=== PATIENT | female | born 1965 | race Caucasian/White ===

== ENCOUNTER 2019-12-03 11:55 | Outpatient (CLI) | payer OTHER ==
[2019-12-03] MEDS ORDERED: IOVERSOL 320 100 ML VIAL IVP ONE ×2 (11:56→12:22)
--- NOTE | 2019-12-03 17:07 | CT Report ---
Reason: ANEURYSM, SUBARACHNOID Procedure Date: 12/03/2019 Accession Number: [id number] / [id number] Procedure: CT - ANGIO HEAD W/WO CPT Code: Final Report FULL RESULT: PROCEDURE: ANGIO HEAD W/WO INDICATIONS: ANEURYSM, SUBARACHNOID CONTRAST: IV CONTRAST: Optiray 320 ml: 80 PO CONTRAST: *NO PO CONTRAST TECHNIQUE: Precontrast 4.5 mm thick angled axial sections acquired from the foramen magnum to the vertex. After the administration of intravenous contrast, 1 mm thick sections acquired through the [place] of [place]. Postcontrast 4.5 mm thick sections then re-acquired from the foramen magnum to the vertex. 3-dimensional xaoetez-bptklsrve-beyecntolw (MIP) and/or volume rendering reformats were acquired of the central intracranial vasculature. For radiation dose reduction, the following was used: automated exposure control, adjustment of mA and/or kV according to patient size. COMPARISON: None FINDINGS: Image quality: Significant artifact is noted at the brain stem appearing to be secondary to aneurysm coil. Anterior circulation: Intracranial internal carotid arteries are normal in size and flow. The flow within the paired anterior cerebral arteries is normal and symmetric. The flow within the middle cerebral arteries is normal and symmetric. The anterior communicating artery is seen. No aneurysms are seen. Posterior circulation: Visualized portions of the vertebral arteries demonstrate normal caliber, and join to form a normal appearing basilar artery. Flow within the posterior cerebral arteries is normal and symmetric. No aneurysms are seen. CSF spaces: Ventricles are dilated.. Basal cisterns are patent. No extra-axial fluid collections. Brain: No midline shift. No intracranial bleeds or masses. Campuzano-white matter interface appears intact. Skull and face: Calvarium and facial bones appear intact, without suspicious lesions. Sinuses: Visualized sinuses and mastoids are clear. IMPRESSION: 1. Significant artifact from presumed aneurysm coil at the level of the brainstem, limiting evaluation of immediate surrounding region. 2. Otherwise, no areas of aneurysmal dilation within the anterior posterior circulation. 3. Ventricles are prominent. No prior exams are available for comparison. Recommend correlation to potential hydrocephalus or potentially normal pressure hydrocephalus. If prior exams are available from outside institutions and become available for review, an addendum will be issued for evaluation of stability or interval change. Reviewed by: An Marsh MD on 12/03/2019 5:05 PM PDT Approved by: An Marsh MD on 12/03/2019 5:05 PM PDT Station ID: [id number]
== END 2019-12-03 11:56 | disposition home or self-care (01) ==
LOC: DI 11:55
PROVIDERS: ATTEND Nurse Practitioner
DX: G93.89 Other specified disorders of brain (principal)
CPT/HCPCS: 70496; Q9967

== ENCOUNTER 2020-02-17 10:40 | Outpatient (CLI) | payer OTHER ==
--- NOTE | 2020-02-17 18:39 | CONSULTATION NOTE ---
Palliative Care Consultation - Referral Referring Provider: ASTRID Fleming Time of Visit: [id number] Referral setting: Home Referral Reason: Subarachnoid hemorrhage/Debility/Advanced Care Planning - Information Sources Records reviewed: Previous records reviewed History/Review of Systems obtained from: Patient, Family (father/Mukund GRAHAM present as well as mother Julieta) - History of Present Illness Brief History of Present Illness: This is a 54-year-old female who was seen and evaluated today within her home for initial palliative care consultation with her father/Devonte MAYS present as well as her mother, Gerry. 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 She sustained an unwitnessed fall and was found at the bottom of the stairs on September 20, 2019. She was treated at [facility] in [place] and was there for approximately 1 month. She underwent a right vertebral artery sacrificing embolization with placement of EVD that was weaned and removed 10/10/2019. The patient after being stabilized transition to a [facility] and then transition to rehab in [place]. She has been first picked up by her family to move into her parents home on [facility] on 11/04/2019. While the patient was hospitalized she was evaluated by neurosurgery and neuro IR. Of note, MRI of the brain performed on 10/16/2019 demonstrated a right lateral medullary subacute infarct. It was recommended that she have follow-up brain imaging as well as with neuro IR. She has not followed up with neurology in this area at the present time as her father reports there have been some barriers due to the patient's [employer] insurance and the patient's needs to establish care as she has relocated. This is pending to be established per the father's report. The patient herself has worked with home health physical therapy and Occupational Therapy completing her last therapy session last week. She has made great strides in having improvement. She continues to overall be wheelchair-bound but is now able to ambulate short distances especially on [place]ia faces that she is familiar with. She is also now able to independently toilet which was a task previously. After her ruptured aneurysm and rehabilitation it has been difficult for the patient and her parents to find a rhythm and groove. They are now in a good place and residing together. The patient is looking forward to continuing to make strides in the rehabilitation floor. She has been getting more out of the home. She does have some on ease with concerns regarding falling on uneven surfaces that she is not familiar with. She has not had a fall and over approximately 1 month. The patient is seen today in her wheelchair, well-groomed appears younger than stated. No acute distress. Medical/Surgical History - Past Medical History Respiratory: reports: Asthma Neuro: CVA, Other (subarachnoid hemorrhage from right vertebral artery rupture Spring 2019; short term memory impairment) Endocrine/Autoimmune: reports: None Psych: reports: Anxiety Derm: reports: None - Past Surgical History Neuro: reports: Other (right vertebral artery embolization with placement of EVD that was removed 10/10/2019) - Substance History Use: Uses substance without health or social issues: NONE Social History - Living Situation Living arrangement: At home Living Situation: With family (Residing with parents, Mukund and Gerry) Support System: The patient is not . She has never had any children. She has 4 siblings. Her 2 brothers are local and have been providing support for both her and her parents. The patient graduated high school and immediately left to move to [place], [place]. She grew up on [address]. She was residing in [place] and until she sustained a ruptured cerebral aneurysm and then relocated back to [facility] in November 2019. Prior to this incident that resulted in her subsequent hospitalization she was planning on moving back to [facility]. Family History - Family History Family History: Mother: Alive and Well, Father: Alive and Well Family History Comment/Other: Father, alive history of diabetes. Mother, alive history of hypertension. Brothers Vasile and Cain and Sister Francia alive and well. Medications/Allergies - Medications Home Medications: Ambulatory Orders Medication Instructions Recorded Confirmed Acetaminophen [Tylenol Extra 1,000 mg PO Q8H PRN 02/17/20 02/17/20 Strength] Amitriptyline [Elavil] 12.5 mg PO QPM 02/17/20 02/17/20 Aspirin [Aspirin EC] 81 mg PO DAILY 02/17/20 02/17/20 Atorvastatin Calcium 20 mg PO QPM 02/17/20 02/17/20 Propranolol [Inderal] 10 mg PO TID 02/17/20 02/17/20 Psyllium Husk [Natural Fiber PO DAILY MDD constipation 02/17/20 Supplement] Senna [Senokot] 8.6 mg PO QPM PRN 02/17/20 02/17/20 Sertraline HCl 100 mg PO DAILY 02/17/20 02/17/20 Albuterol Sulfate [Albuterol 2 puffs IN Q4H PRN 02/18/20 02/18/20 Sulfate Hfa] - Allergies Allergies/Adverse Reactions: Allergies Allergy/AdvReac Type Severity Reaction Status Date / Time Sulfa (Sulfonamide Allergy Unknown Verified 02/17/20 21:52 Antibiotics) Review of Systems - Constitutional Constitutional: reports: Fatigue. denies: Weight loss - Eyes Eyes: reports: Corrective lenses - Ears, Nose & Throat Ears, Nose & Throat: reports: Tinnitus, Other (sinus problems) - Cardiovascular Cardiovascular: denies: Palpitations, Chest pain - Respiratory Respiratory: denies: Wheezing (history of asthma) - Gastrointestinal Gastrointestinal: reports: Constipation (managed with current use of fiber), Good appetite. denies: Abdominal pain, Diarrhea, Vomiting - Genitourinary Genitourinary: denies: Dysuria - Musculoskeletal Musculoskeletal: reports: Muscle pain, Stiffness, Assistive devices - Integumentary Integumentary: denies: Rash - Neurological Neurological: reports: General weakness, Dizziness (rare with position changes), Memory problems (short term memory), Other (intermittent tingling noted from proximal LLE down that improves with position changes). denies: Seizures - Psychiatric Psychiatric: reports: Depression - Endocrine Endocrine: denies: Diabetes type 2 - Hematologic/Lymphatic Hematologic/Lymphatic: denies: Recurrent infections - All Other Systems All Other Systems: reports: Reviewed and negative Physical Exam - Vital Signs Temperature: 36.6 C Pulse Rate: 78 O2 Saturation: 97 (on RA at rest) Blood Pressure: 103/65 (left wrist cuff) - Physical Exam General Appearance: positive: No acute distress, Alert, Other (well groomed, appears younger than stated age) Eyes Bilateral: positive: Other (+corrective lenses) ENT: positive: No signs of dehydration Neck: positive: Trachea midline Cardiovascular: positive: Regular rate & rhythm, No murmur Respiratory: positive: No respiratory distress, Breath sounds nml. negative: Rales Abdomen: positive: Non-tender, Soft, Nml bowel sounds Skin: positive: No symptoms Extremities: positive: No pedal edema, Other (moves all extremities; decreased strength to LLE vs RLE) Neurologic/Psychiatric: positive: Oriented x3 (intact remote memory with short term memory impairments noted), Mood/affect nml, Other (Engaged) Palliative Care - POLST Patient has POLST: No Feelings of wellbeing/Perceived Quality of Life: Fair Constipation: Yes, Managed Performance Status: Patient is able to ambulate short distances with her walker otherwise uses a wheelchair and is able to self propel. She is able to toilet independently. Able to self feed. PPS 50% - Palliative Care Discussion: The patient has had a functional decline after she sustained a ruptured aneurysm resulting in a subarachnoid hemorrhage. She has made great strides in her functional status while residing at her parents home on [facility] after relocated from [place]. She is completed her physical therapy and occupational therapy with home health in wishes to continue outpatient services for strengthening and with the goal of walking independently with her walker without fear of falling. The patient presently feels confident walking outside on her parents deck and within the home. She has a fear of falling when ambulating on uneven surfaces and would benefit from continued therapy. The patient and her parents initially had some difficulty in finding a rhythm as the patient herself reports that she has been set on her routines and had lived independently and moving back into her parents home and settling was quite an abrupt change for her. Both the patient and her father report that they have made headway and are in a good rhythm at the present time. The patient spirits have also improved as she has become more independent. However, the patient finds the isolation difficult as the environment on [facility] is at a slower pace than [place]. It is also compounded by the coronavirus limiting social interaction and group meetings. The patient's father/D POA initially had concerns regarding the patient going outside of the home and being at risk for the coronavirus. His fear has lessened and reassurance provided regarding appropriate preventative measures to take for all parties within the home to reduce risk. The patient finds [employer] in the Internet and social media. Her present goals are to be able to have coffee with a neighbor up the street to his of the same age, Stephanie. She also wishes to be able to attend christian as this is something that has been important to her in the past and she is of [employer]. The patient also has an interest in photography as well as art and this [facility] encouraged the patient to explore these interest further. Impression and Recommendations - Palliative Care Impression: This is a amx 54-year-old female who unfortunately sustained a ruptured aneurysm to the right vertebral artery resulting in a subsequent subarachnoid hemorrhage with a decline in functional status and short-term memory impairment. The patient has made great strides and continues to improve but is not at her baseline status. She would benefit from continued physical therapy and Occupational Therapy on an outpatient basis with achievable goals of going to christian, ambulating with her walker, and having coffee with a neighbor. Palliative care to continue to provide support for exploration of goals of care, symptom management, and advanced care planning. Recommendations/Counseling Done: 1. Subarachnoid hemorrhage s/p rupture vertebral artery with decline in functional status and short term memory impairment. Patient is making strides in functional ability. She would benefit from continued physical therapy and Occupational Therapy outpatient. Order for [facility] PT and OT faxed and father aware to f/u regarding request. Supportive care. Fall precautions. Strongly encouraged to patient and father/D Mukund REESE the need for neurology follow-up with requested imaging given the patient's recent history with understanding verbalized. 2. CVA. Chronic. Supportive care. Continue secondary preventative measures for stroke in optimizing BP control, ASA and statin therapy. Reviewed with patient's father the need for consistent administration of ASA 81mg daily and it is not for pain management as the patient is s/p CVA and s/p aneurysm coiling with understanding verbalized. 3. Depression with history of paroxysmal sympathetic hyperactivity. Compounded by patient's social isolation due to coronavirus. Strongly encouraged the patient to explore previous interest in photography and art. Recommended free online programs for the patient to engage in. Strongly encouraged to connect with her neighbor to build rapport. To request palliative care social services designee an d palliative care kitchen utility associate provide additional psychosocial support and reduce isolation.Continue amitriptyline and sertraline as ordered. Supportive listening provided. Continue to monitor and adjust medication regimen as needed. 4. Advanced care planning. Patient has achievable goals of ambulating independently with her walker and reducing her social isolation. She recognizes her cognitive and functional impairments and has made great strides in adapting. She has a supportive network from HER-2 brothers as well as her parents. Supportive listening provided. Continue to explore goals of care and advance care planning. Time Spent: Total time spent 70 minutes with greater than 50% of this spent in counseling and coordination of care with patient and parents, Naveen; palliative philosophy; examination of patient; review symptom management and anticipatory guidance. Disclaimer: The chart note was formulated using voice recognition technology and unfortunately sound alike errors may occur.
== END 2020-02-17 10:41 | disposition home or self-care (01) ==
LOC: PC 10:40
PROVIDERS: ATTEND Nurse Practitioner Family
DX: Z51.5 Encounter for palliative care (principal); I69.011 Memory deficit following nontraumatic subarachnoid hemorrhage; I69.0 Sequelae of nontraumatic subarachnoid hemorrhage; I60.51 Nontraumatic subarachnoid hemorrhage from right vertebral artery; I63.9 Cerebral infarction, unspecified; F32.9 Major depressive disorder, single episode, unspecified; K59.00 Constipation, unspecified; Z79.899 Other long term (current) drug therapy; Z79.82 Long term (current) use of aspirin; Z60.8 Other problems related to social environment
CPT/HCPCS: 99344

== ENCOUNTER 2020-03-17 10:30 | Outpatient (CLI) | payer OTHER ==
--- NOTE | 2020-03-17 15:12 | CONSULTATION NOTE ---
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 Please see a detailed history dictated on 02/17/2020 for full details. The patient has recently seen neurologist, Dr. Zoraida Michel at [facility], With reports that she has had resolution of her hydrocephalus and that the coil is stable. She is to have a repeat MRI but there was no concerning symptoms on evaluation noted by the neurologist as reported by the patient's father. The patient is now working with outpatient physical therapy and Occupational Therapy. She is no longer using her transport wheelchair as frequently and and is using her walker more regularly. He was found that the transport wheelchair was causing pain to her left hip secondary to the bar. After removing their transporter wheelchair the patient has had resolution of those symptoms regarding her left hip pain. She continues to work on ambulation and exercises as is recommended by physical therapy. However, the patient reports that there are some exercises that she requires her parents assistance and she feels underlying guilt for taking them away from their activities. The patient remains fearful regarding walking on on even surfaces for fear of falling. She is afraid that if she were to fall that she would have a backward recourse in her capabilities. She has been doing quite well walking on asphalt to go to her rehabilitation appointments. She continues to have some difficulty with her short-term memory. The patient has adapted by taking pictures to review to help with her memory. This is been significantly helpful for her recall especially when she has consumed a meal and then believes that she has not eaten. The patient also is insightful that the use of the stool as well as her parents keeping a log of when she has taken her medications, the times as well as her meals has helped diffuse and anger that she may have had towards her parents. Yesterday, the patient reports that she noticed some left shoulder discomfort. She denies a pain with movement but there is localized tenderness to touch. No swelling. No warmth. No numbness or tingling down the left upper extremity. Patient does not recall an injury. The patient is seen in the living room on a office chair, well-groomed and appears younger than stated age. No acute distress. 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 Social History - Living Situation Living arrangement: At home Living Situation: With family Support System: The patient is not and does not have any children. She is presently residing with her parents, Mukund and Gerry bowden in their 80s. She has 4 siblings. She has 2 brothers who are local and have been assisted in providing support for both her and her parents. Prior to her cerebral aneurysm the patient was residing in [place], [place]. She did grow up on [facility]. She is used to the [employer] as well as the [employer] industry. She enjoys interacting with other people. She has found it isolating and difficult due to the coronavirus limiting her ability to socialize in the [facility] [place] [facility] community and particularly having her parents be her main source of social interactions. Medications/Allergies - Medications Home Medications: Ambulatory Orders Medication Instructions Recorded Confirmed Acetaminophen [Tylenol Extra 1,000 mg PO Q8H PRN 02/17/20 02/17/20 Strength] Amitriptyline [Elavil] 12.5 mg PO QPM 02/17/20 02/17/20 Aspirin [Aspirin EC] 81 mg PO DAILY 02/17/20 02/17/20 Atorvastatin Calcium 20 mg PO QPM 02/17/20 02/17/20 Propranolol [Inderal] 10 mg PO TID 02/17/20 02/17/20 Psyllium Husk [Natural Fiber PO DAILY MDD constipation 02/17/20 Supplement] Senna [Senokot] 8.6 mg PO QPM PRN 02/17/20 02/17/20 Sertraline HCl 100 mg PO DAILY 02/17/20 02/17/20 Albuterol Sulfate [Albuterol 2 puffs IN Q4H PRN 02/18/20 02/18/20 Sulfate Hfa] - Allergies Allergies/Adverse Reactions: Allergies Allergy/AdvReac Type Severity Reaction Status Date / Time Sulfa (Sulfonamide Allergy Unknown Verified 02/17/20 21:52 Antibiotics) Review of Systems - Constitutional Constitutional: reports: Weight stable. denies: Fever, Poor appetite - Eyes Eyes: reports: Corrective lenses (has an upcoming optometry appointment scheduled for new glasses). denies: Vision loss - Ears, Nose & Throat Ears, Nose & Throat: denies: Hearing loss - Cardiovascular Cardiovascular: denies: Chest pain - Respiratory Respiratory: denies: Cough, SOB at rest - Gastrointestinal Gastrointestinal: reports: Constipation (Notices if she does not consume enough water during the day she will have firmer bowel movements), Good appetite. denies: Abdominal pain, Vomiting - Genitourinary Genitourinary: denies: Dysuria - Neurological Neurological: reports: General weakness, Memory problems (short term memy with remote memory intact). denies: Headache, Seizures - Psychiatric Psychiatric: reports: Depression (see HPI) - Endocrine Endocrine: denies: Diabetes type 2 - Hematologic/Lymphatic Hematologic/Lymphatic: denies: Recurrent infections - All Other Systems All Other Systems: reports: Reviewed and negative Physical Exam - Vital Signs Temperature: 36.6 C Pulse Rate: 80 O2 Saturation: 96 (on RA at rest) Blood Pressure: 136/64 - Physical Exam General Appearance: positive: No acute distress, Alert, Other (well groomed, appears younger than stated age) Eyes Bilateral: positive: Other (+corrective lenses) ENT: positive: No signs of dehydration Neck: positive: Trachea midline Cardiovascular: positive: Regular rate & rhythm, No murmur Respiratory: positive: No respiratory distress, Breath sounds nml. negative: Wheezes Abdomen: positive: Non-tender, Soft, Nml bowel sounds Skin: positive: No symptoms Extremities: positive: No pedal edema, Other (moves all extremities; TTP left trapezius muscle along shoulder without erythema or induration; full ROM for right and left shoulders.Left shoulder active ROM without discomfort and full strength abduction, external rotation and internal rotation.). negative: Joint swelling Neurologic/Psychiatric: positive: Oriented x3 (mild short term memory impairments noted), Mood/affect nml Palliative Care - POLST Patient has POLST: No Pain: Comment (see HPI re: left shoulder pain) Nausea: None Anorexia: None Dyspnea: None Depression: Mild (1-3) Anxiety: Mild (1-3) Constipation: Yes, Managed Performance Status: The patient has been increasing her ability to ambulate distances with her walker and is relying less on her transporter wheelchair. She is able to toilet independently. Able to self feed. No falls. - Palliative Care Discussion: The patient has had a functional decline after she sustained a ruptured aneurysm resulting in a subarachnoid hemorrhage. She continues to make great strides in her functional status Erik residing in her parents home on [facility] after relocating from [place]. She is presently working with outpatient physical therapy and Occupational Therapy. Despite her significant progress the patient continues to lament upon what she was capable of doing prior to this health event. The patient's father/D POA and family all recognize the strides that she has made. When pointed out where the patient was to where she is and accomplishments that she has made, she is able to recognize her overall accomplishments. She continues to find the isolation difficult due to the coronavirus limiting social interaction as well as living on [facility] which is in a much slower place than [place]. She has been getting out of the house more as she has had to attend her rehabilitation services as an outpatient. Next weekend she is to be with her brothers for a family outing at [facility] past which she is looking forward to. She does miss the support that she had with in her [employer] in [place]. She does desire to have that support here on [facility]. She recently attended a virtual sermon from her prior [employer]. Impression and Recommendations - Palliative Care Impression: This is a max 54-year-old female who unfortunately sustained a ruptured aneurysm to right vertebral artery resulting in a subarachnoid hemorrhage with a decline in functional status and short-term memory impairment. The patient continues to make great strides in her overall functional status but she continues to not fully recognize the accomplishments that she has achieved. She is presently working with outpatient physical and occupational therapy to improve her functional status has well as her short-term memory impairments as a result of her cerebral aneurysm. Patient is going to look towards focusing on the present and management of her expectations of herself. Palliative care to continue to provide support for exploration of goals of care, symptom management and advance care planning. Recommendations/Counseling Done: 1. Subarachnoid hemorrhage status post rupture vertebral artery with decline in functional status and short-term memory impairment. Status post neurology appointment at [facility] with Dr. Zoraida Michel with patient and father/DPOA reporting stablization. Will request copy of visit from [facility] for review. The patient continues to make strides in her functional ability. Continue to work with outpatient physical therapy and Occupational Therapy. In regards to her underlying debility as a result of her cerebral hemorrhage recommend that she obtain exercises directly from physical therapy that she may perform independently without the assistance of her parents. Also recommend that for exercises that she needs the assistance of her parents within the home to set a daily time on days that she does not have physical therapy to limit her perception of being a burden to her parents. Follow-up with neurology as scheduled. 2.Depression with history of paroxysmal sympathetic hyperactivity. This is compounded by the patient's social isolation due to coronavirus.Continue amitriptyline and sertraline as ordered. Continue outpatient psychotherapy. Continue to have additional support from palliative care director social for psychosocial support and to reduce isolation. Requested that the patient look into [employer] churches in her area to see if they are holding limited services with the goal for her to attend as her evelia and the interactions of others of her evelia are of importance to her. Also requested that she reach out to the neighbor on her street to set up a coffee date in the future. Supportive listening provided. Continue to monitor and adjust medication regimen as needed. 3. Left trapezius muscle tenderness. Continues with full range of motion to left shoulder. Possibly exacerbated musculature due to strengthening exercises. Recommend that the patient's apply a cool compress to the affected site for 10 minutes 3 times per day for the next 3 days. If no improvement or worsening symptoms to follow-up with her PCP for further evaluation with understanding verbalized. 4. CVA. Chronic. Supportive care. Continue secondary preventative measures for stroke and optimizing blood pressure control, aspirin and statin therapy. Follow-up with neurology as scheduled. CC: Palliative Care Social Work Time Spent: F/u May 2020 and prn. Total time spent 50 minutes with greater than 50% of this spent in counseling and coordination of care with patient and father/DPOA Mukund; examination of patient; supportive listening; review of symptom management and anticipatory guidance. Disclaimer: The chart note was formulated using voice recognition technology and unfortunately sound alike errors may occur.
== END 2020-03-17 10:31 | disposition home or self-care (01) ==
LOC: PC 10:30
PROVIDERS: ATTEND Nurse Practitioner Family
DX: Z51.5 Encounter for palliative care (principal); I60.9 Nontraumatic subarachnoid hemorrhage, unspecified; I69.011 Memory deficit following nontraumatic subarachnoid hemorrhage; I69.098 Other sequelae following nontraumatic subarachnoid hemorrhage; I10 Essential (primary) hypertension; F32.9 Major depressive disorder, single episode, unspecified; M25.512 Pain in left shoulder; E11.9 Type 2 diabetes mellitus without complications
CPT/HCPCS: 99349

== ENCOUNTER 2020-04-16 10:42 | Outpatient (CLI) | payer OTHER ==
--- NOTE | 2020-05-06 08:34 | Mammography Report ---
BILATERAL DIGITAL SCREENING MAMMOGRAM: 04/16/2020 CLINICAL: Routine screening. No prior exams were available for comparison. The tissue of both breasts is heterogeneously dense. T his may lower the sensitivity of mammography. No significant masses, calcifications, or other findings are seen in either breast. IMPRESSION: NEGATIVE There is no mammographic evidence of malignancy. A 1 year screening mammogram is recommended. This exam was interpreted at Station ID: [id number]. NOTE: For mammograms, a report in lay terms will be sent to the patient. Approximately 15% of breast malignancies will not be visualized mammographically. In the management of a palpable breast mass, a negative mammogram must not discourage biopsy of a clinically suspicious lesion. Electronically Signed By: Teodoro salmon/johnny:05/06/2020 08:13:06 ACR BI-RADS Category 1: Negative 3341F PARENCHYMAL PATTERN: (D) - The breast(s) demonstrate(s) heterogeneously dense fibroglandular vance mayer. BI-RADS CATEGORY: (1) - 1 RECOMMENDATION: (ANNUAL) - Recommend routine annual screening mammography. [id number] 1 year screening LATERALITY: (B)
== END 2020-04-16 10:43 | disposition home or self-care (01) ==
LOC: DI.N 10:42
DX: Z12.31 Encounter for screening mammogram for malignant neoplasm of breast (principal)
CPT/HCPCS: 77067

== ENCOUNTER 2020-05-11 15:51 | Outpatient (CLI) | payer OTHER ==
--- NOTE | 2020-05-11 17:44 | CONSULTATION NOTE ---
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 Please see detailed history dictated on 02/17/2020 for full details. The patient was scheduled for an MRI at [facility] that was ordered by her neurologist, Dr. MATT at [facility]. However, this is not able to be performed at the present time given the patient's history of having a coil status post her subarachnoid hemorrhage. The patient's father has a follow-up request to the neurologist and is awaiting further recommendations. The patient continues to work on ambulation and is attending physical therapy service twice a week with [facility] rehabilitation outpatient services. She is also begun working with the speech-language pathologist and has had 1 session with a nonthere are pending later this week. She is found working with the [facility] helpful. She notes that if she writes things down she is more apt to remember them. She is reporting "numbness" to her left calf. This is been present since she sustained her subarachnoid hemorrhage and residual sequelae. The patient states that she has reported this to physical therapy and they had recommended a using ice or heat application to the site as well as performing specific exercises. She continues to report its presence and is presently concerned that she may have symptoms of diabetes. The patient has been slowly gaining weight due to her inactivity and short-term memory impairment prompting her to forget that she has consumed a meal resulting in weight gain. The patient has adapted by taking pictures of her meal before consuming it as a time stance and reference for her to refer back to. However, in the last few days her family has scared her in regards to development of diabetes if she continues on this path and given the strong family history of diabetes with her maternal grandmother as well as in her father. The patient reports that she continues to have outburst here and there specifically revolving around her inability to do certain things. While in thing in particular that is a trigger for her is being declined food without further explanation. Patient reports that she would respond better to her parents if there was further explanation as opposed to a blanket statement. The patient continues on amitriptyline and sertraline for her mood. She continues to work with psychologist, Dr. Morris with phone describes to relieve tension. The patient's father reports that the outbursts have lessened and does not believe she needs an adjustment in her medications at the present time. The patient herself still finds that she has restricted movement with her activities due to the coronavirus and the need to mitigate her risk as well as her parents. The patient recognizes this but it is still difficult to adapt to her new surroundings. She is 1 that relies heavily on her evelia and it has also been difficult she has not been able to attend nondenominational and attend weekly virtual sessions. The patient is seen in the living room in an office chair, well-groomed and appears younger than stated age. No acute distress. 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 Social History - Living Situation Living arrangement: At home Living Situation: With family (parents, Gerry and Mukund) Support System: The patient is not and does not have any children. She presently resides with her parents, Mukund and Gerry who are in their 80s. She has 4 siblings. She has 2 brothers who are local and have been assisting in providing support for both her and her parents. Prior to her cerebral aneurysm the patient was residing in [place] [facility]. She grew up on [address]. He has not had coffee with the neighbor who is of similar age down the street from her in the neighborhood since last [facility] visit. She does have a friend from out of town who wishes to make a visit at a local coffee house and with some mediation today the patient's father is open to this meeting. Medications/Allergies - Medications Home Medications: Ambulatory Orders Medication Instructions Recorded Confirmed Acetaminophen [Tylenol Extra 1,000 mg PO Q8H PRN 02/17/20 02/17/20 Strength] Amitriptyline [Elavil] 12.5 mg PO QPM 02/17/20 02/17/20 Aspirin [Aspirin EC] 81 mg PO DAILY 02/17/20 02/17/20 Atorvastatin Calcium 20 mg PO QPM 02/17/20 02/17/20 Propranolol [Inderal] 10 mg PO TID 02/17/20 02/17/20 Psyllium Husk [Natural Fiber PO DAILY MDD constipation 02/17/20 Supplement] Senna [Senokot] 8.6 mg PO QPM PRN 02/17/20 02/17/20 Sertraline HCl 100 mg PO DAILY 02/17/20 02/17/20 Albuterol Sulfate [Albuterol 2 puffs IN Q4H PRN 02/18/20 02/18/20 Sulfate Hfa] - Allergies Allergies/Adverse Reactions: Allergies Allergy/AdvReac Type Severity Reaction Status Date / Time Sulfa (Sulfonamide Allergy Unknown Verified 02/17/20 21:52 Antibiotics) Review of Systems - Constitutional Constitutional: reports: Weight gain (weight presently 150lbs). denies: Fever - Eyes Eyes: reports: Corrective lenses. denies: Vision loss - Ears, Nose & Throat Ears, Nose & Throat: denies: Hearing loss - Cardiovascular Cardiovascular: denies: Chest pain - Respiratory Respiratory: denies: Cough - Gastrointestinal Gastrointestinal: reports: Good appetite (Does not recall when she has eaten and will take pictures of her meals for reference). denies: Abdominal pain, Constipation, Vomiting - Genitourinary Genitourinary: denies: Incontinence - Musculoskeletal Musculoskeletal: reports: Muscle pain (left calf), Assistive devices. denies: Joint swelling - Integumentary Integumentary: denies: Pruritis - Neurological Neurological: reports: Memory problems (short term memory deficit with remote memory intact). denies: Seizures - Psychiatric Psychiatric: reports: Depression - Endocrine Endocrine: denies: Diabetes type 2 - Hematologic/Lymphatic Hematologic/Lymph: Other (Denies recurrent infections) - All Other Systems All Other Systems: reports: Reviewed and negative Physical Exam - Vital Signs Temperature: 36.7 C Pulse Rate: 72 O2 Saturation: 98 (on RA at rest) Blood Pressure: 138/85 (left wrist cuff) - Physical Exam General Appearance: positive: No acute distress, Alert, Other (well groomed, appears younger than stated age) Eyes Bilateral: positive: Other (+corrective lenses) ENT: positive: No signs of dehydration Neck: positive: Trachea midline Cardiovascular: positive: Regular rate & rhythm, No murmur Respiratory: positive: No respiratory distress, Breath sounds nml Abdomen: positive: Non-tender, Soft, Nml bowel sounds Skin: positive: Dryness Extremities: positive: No pedal edema, Other (Tension noted to left calf vs right calf with palpation with no warmth or erythema visible) Neurologic/Psychiatric: positive: Oriented x3, Mood/affect nml, Weakness, Other (sensation to BLE intact with pin-prick testing) Palliative Care - POLST Patient has POLST: No Pain: Comment (see HPI for left calf comments) Nausea: None Anorexia: None Dyspnea: None Depression: Mild (1-3) Anxiety: Mild (1-3) Constipation: Yes, Managed - Palliative Care Discussion: The patient sustained a functional decline after she had a ruptured aneurysm resulting in a subarachnoid hemorrhage. She continues to make straight strides in her functional status while residing in her parents home on [address]. She is presently working with outpatient physical therapy and [facility] services. She is looking at ways of adapting to her present limitations to increase her ability to function independently. She becomes frustrated quite easily if the right approach is not taken in explanation by her parents for the thought process. The patient feels that she often has to ask for permission from her parents and this reminds her of returning back to her teenage years. She has found the isolation difficult due to the coronavirus limiting her social interactions as well as living on [address]. She has been getting out of the house to attend her rehabilitation services as an outpatient. She also has gone out on trips with her father on [facility]. However, the patient's father is conservative in his approach to outings for fear of the patient, himself, or his eloina the coronavirus. He is trying to be protective of the entire family. He is open as he understands the isolation that the patient is experiencing, to have them attended adding to would be coffee and eventually allow for the patient to meet with a visiting friend outside for coffee. The patient at times will perseverate on particular thoughts and feelings. Today, the patient is perseverating that she potentially may have diabetes mellitus due to the tight feeling to her left calf and explanation from her family regarding risk of diabetes with weight gain and her dietary choices. The patient relays that she does not wish to take herself "an early grave." Impression and Recommendations - Palliative Care Impression: This is a max 54-year-old female who unfortunately sustained a ruptured aneurysm to the right vertebral artery resulting in a subarachnoid hemorrhage with a decline in functional status and short-term memory impairment. She continues to make great strides in her overall function with adaptation techniques and is presently working with outpatient rehabilitation with PT and [facility]. The patient continues to have intermittent outbursts due to her history of subarachnoid hemorrhage and underlying depression but this is presently overall well controlled and medication adjustment was declined by the patient and her father/DPOA. Continue to work on mediation and communication between the patient and her parents to optimize the circumstances for all. Palliative care to continue to read support with explanations of goals of care, symptom management and advance care planning. Recommendations/Counseling Done: 1. Subarachnoid hemorrhage status post rupture vertebral artery with decline in functional status and short-term memory impairment. Now followed by Dr. MATT at [facility]. Patient's father/DPOA reports that MRI that was ordered by Dr. MATT was not able to be obtained at the present time due to her history of having a coil and father is waiting return call back from Dr. MATT office in regards to how to best proceed. She continues to work with outpatient physical therapy and [facility] to regain her functional status that was lost. Follow-up with neurology as scheduled. 2. Left calf tension. Possibly due to aggravation in regards to how the patient is ambulatory catherine and favoring her left side. Recommended application of warm heat to the left calf for 10 minutes daily for 7 days and then to perform calf exercises for stretching and holding for 10 seconds with repetition 3 times daily for 7 days. Demonstrated how to do the calf exercise on a step or he had made step by the patient's father/DPOA with support from her walker for balance. F/u with PCP if no improvement or new/worsening symptoms. 3. Weight gain. Multifactorial given the patient's sedentary lifestyle and short-term memory impairment impacting her ability to recall when she has eaten. Encouraged to avoid white starchy foods. Advised to limit processed snacks consumption. Reassurance provided to the patient that there is no signs or symptoms of diabetes mellitus based on her ROS. Reviewed signs and symptoms of diabetes mellitus type 2 with the patient and her father with reassurance provided. If concerns regarding diabetes mellitus continues in the future may obtain hemoglobin A1c for further evaluation. 4. Depression with a history of paroxysmal sympathetic hyperactivity. This is compounded by the patient's social isolation due to coronavirus. Continue amitriptyline and sertraline as ordered. Both the patient and her father declined further dose adjustments at the present time. Provided mediation and support between the patient and her father/DPOA today regarding tricks to more effectively communicate with 1 another. Encouraged the patient's father to provide a rationale for his reasoning in regards to responses. Also requested that the patient's concerns be recognized and addressed at her upcoming PCP appointment in order for her to feel included in her medical care. Continue outpatient psychotherapy. In the future request additional support from [employer] social and political studies professor and to assist with reduction of isolation. Encourage the patient's father/DPOA to reevaluate having the patient visit in an appropriately distant setting, outside with a friend from out of town for coffee to reduce isolation. Patient is to follow-up with her neighbor down the street for setting up a coffee date before she snowbirds out of the area. Supportive listening provided. Continue to monitor and provide support. Time Spent: CC; Palliative Care Social Work F/u July 2020 and as needed Total time spent 60 minutes with greater than 50% of the spent in counseling coordination of care with the patient and father/DPOADevonte; review of ways to effectively communicate with 1 another; examination of the patient; supportive listening; and anticipatory guidance. Disclaimer: The chart note was formulated using voice recognition technology and unfortunately sound alike errors may occur.
== END 2020-05-11 15:52 | disposition home or self-care (01) ==
LOC: PC 15:51
PROVIDERS: ATTEND Nurse Practitioner Family
DX: Z51.5 Encounter for palliative care (principal); I60.51 Nontraumatic subarachnoid hemorrhage from right vertebral artery; I69.011 Memory deficit following nontraumatic subarachnoid hemorrhage; I69.028 Other speech and language deficits following nontraumatic subarachnoid hemorrhage; I69.098 Other sequelae following nontraumatic subarachnoid hemorrhage; R63.5 Abnormal weight gain; F32.9 Major depressive disorder, single episode, unspecified; Z79.899 Other long term (current) drug therapy; Z79.82 Long term (current) use of aspirin
CPT/HCPCS: 99350

== ENCOUNTER 2020-08-06 12:00 | Outpatient (CLI) | payer OTHER ==
--- NOTE | 2020-08-06 16:00 | CONSULTATION NOTE ---
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 Please see detailed history redictated on 02/17/2020 for full details. The patient has had a follow-up MRI as ordered by her neurologist, Dr. Claros at [facility]. They have had a follow-up with Dr. Claros since the MRI and everything "looked good" and she has a follow-up in 6 months. She has also been seen by a neurosurgeon, Dr. Eloise Edwards in [place] yesterday which also went well. The patient continues to work on ambulation and is intending physical therapy services twice a week with [facility] rehabilitation outpatient services. She is now walking a bit more independently without an assistive device within the home environment. She has not had any falls. The patient was also working with speech-language pathologist to help with recall and memory deficits which she has found to be assistive. However, the speech-language pathologist that she was working with has now left the area and therefore her AUTOPSY PATHOLOGIST services are on hold and to a new AUTOPSY PATHOLOGIST begin at the [facility]. The patient continues to have a very hearty appetite and after eating does not have an awareness of being full. Both the patient and her father expressed concerns about the patient's risk of gaining weight due to her inability to have full saiety and lack of exercise. The patient has been working with AUTOPSY PATHOLOGIST in regards to more healthy options within the home. The patient's father typically will offer an apple if the patient remains hungry between meals. Offered referral to dietitian for further assistance but this was declined by both the patient and father. The patient is making strides in her ability to care for herself. She continues to remain frustrated with how isolated she is on the [place] due to the age demographic as well as restrictions from the coronavirus. The patient is having less reports of irritability and outbursts with her parents. She recently got her haircut by her sister and this uplifted her spirits. The patient is seen in the living room in an office chair, well groomed and appears younger than stated age. No acute distress. 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 Social History - Living Situation Living arrangement: At home Living Situation: With family (parents, Gerry and Mukund) Support System: Patient is not does not have any children. She presently resides with her parents, Mukund and Gerry who are in their 80s. She has 4 siblings. She has 2 brothers who are local and have been assisting with providing support for both her and her parents. Prior to her cerebral aneurysm the patient was residing in [facility]. She grew up on [address]. The patient continues to have face time in contact with friends from her rastafari as well as some friends from [place]. She does not have any local friends. She does have a neighbor down the street who is of a similar age that she has not followed through when meeting up for coffee due to her parents fear of coronavirus as well as her own reservations as she has a sense that she would be imposing. However, the neighbor, Stephanie that resides down the street is presently snowboarding in [place] and is not here at the moment. Medications/Allergies - Medications Home Medications: Ambulatory Orders Medication Instructions Recorded Confirmed Acetaminophen [Tylenol Extra 1,000 mg PO Q8H PRN 02/17/20 02/17/20 Strength] Amitriptyline [Elavil] 12.5 mg PO QPM 02/17/20 02/17/20 Aspirin [Aspirin EC] 81 mg PO DAILY 02/17/20 02/17/20 Atorvastatin Calcium 20 mg PO QPM 02/17/20 02/17/20 Propranolol [Inderal] 10 mg PO TID 02/17/20 02/17/20 Psyllium Husk [Natural Fiber PO DAILY MDD constipation 02/17/20 Supplement] Senna [Senokot] 8.6 mg PO QPM PRN 02/17/20 02/17/20 Sertraline HCl 100 mg PO DAILY 02/17/20 02/17/20 Albuterol Sulfate [Albuterol 2 puffs IN Q4H PRN 02/18/20 02/18/20 Sulfate Hfa] - Allergies Allergies/Adverse Reactions: Allergies Allergy/AdvReac Type Severity Reaction Status Date / Time Sulfa (Sulfonamide Allergy Unknown Verified 02/17/20 21:52 Antibiotics) Review of Systems - Constitutional Constitutional: reports: Weight stable (see HPI). denies: Fever - Eyes Eyes: reports: Corrective lenses - Ears, Nose & Throat Ears, Nose & Throat: denies: Nasal congestion - Cardiovascular Cardiovascular: denies: Edema - Respiratory Respiratory: denies: Cough - Gastrointestinal Gastrointestinal: reports: Good appetite (Does not recall when she has eaten and will take pictures of her meals for reference, see HPI). denies: Abdominal pain, Constipation - Musculoskeletal Musculoskeletal: reports: Assistive devices. denies: Joint swelling - Integumentary Integumentary: reports: Dryness - Neurological Neurological: reports: Memory problems (short term memory deficit with remote memory intact). denies: Seizures - Psychiatric Psychiatric: reports: Depression - Hematologic/Lymphatic Hematologic/Lymph: Other (Denies recurrent infections) - All Other Systems All Other Systems: reports: Reviewed and negative Physical Exam - Vital Signs Temperature: 36.7 C Pulse Rate: 76 O2 Saturation: 98 (on RA at rest) Blood Pressure: 122/66 (left wrist cuff) - Physical Exam General Appearance: positive: No acute distress, Alert, Other (well groomed, appears younger than stated age) Eyes Bilateral: positive: Other (+corrective lenses) ENT: positive: No signs of dehydration Neck: positive: Trachea midline Cardiovascular: positive: Regular rate & rhythm Respiratory: positive: No respiratory distress, Breath sounds nml. negative: Wheezes Abdomen: positive: Non-tender, Soft, Nml bowel sounds, Other (bladder nondistended) Skin: positive: Dryness Extremities: positive: No pedal edema Neurologic/Psychiatric: positive: Oriented x3, Mood/affect nml, Weakness Palliative Care - POLST Patient has POLST: No Performance Status: Patient has been increasing her ability to ambulate distances without her walker. She is able to toilet independently and is able to perform self-care tasks. Able to self feed. No falls. She continues to require assistance with independent activities of daily living such as is needing someone to drive her to appointments, meal prep, finances, etc. She is making great strides. - Palliative Care Discussion: The patient had a functional decline after she sustained a ruptured aneurysm resulting in a subarachnoid hemorrhage. She continues to make great strides in her functional status while residing in her parents home on [address] after relocating from [place]. She is presently working with outpatient physical therapy twice a week. She was working with speech-language pathologist which has been assisted with her short-term memory impairments however, this is on hold and to a new AUTOPSY PATHOLOGIST is recruited for the area. The patient's greatest frustration is how isolated she feels well living with her parents. Fees she finds it would be [place] is an aging demographic location and she desires interactions with people closer to her own age but this is restricted given the coronavirus pandemic and her father's fear about bringing that into the home. Typically her outings are only for rehabilitation services as an outpatient and doctors visits. She continues to have close contact with 2 friends from her rastafari community and her 2 brothers call her every evening. The patient is recognizing that she is making further strides and is hoping in the future to have further independence. In the last week or so both she and her father have been conversing about living situation had a future date and time for the patient. The patient's father recognizes that both he and his are older in age and if that something were to happen to either of them the patient would not be able to live independently within the home and nor which she wished to. They have been discussing assisted living options as well as potentially living close to one of her brothers to to have continued oversight in management. Impression and Recommendations - Palliative Care Impression: This is a max 54-year-old female who unfortunately sustained a ruptured aneurysm to the right vertebral artery resulting in a subarachnoid hemorrhage with decline in functional status and short-term memory impairment. She continues to make great strides in her overall function with adaptive techniques and continues to work with outpatient rehabilitation with physical therapy and AUTOPSY PATHOLOGIST is presently on hold. She is looking for opportunities to have more interactions with others in a safe setting as well as looking towards the future to regain some of her independence. The patient and her parents have improved their communication skills since first evaluation and meeting. Recommendations/Counseling Done: 1. Subarachnoid hemorrhage status post rupture of vertebral artery with decline in functional status and short-term memory impairment. Followed by Dr. MATT at [facility] and Dr. Eloise Edwards at [place]. Continue to work with outpatient physical therapy and AUTOPSY PATHOLOGIST when there is a new provider. Follow-up with neurology and neurosurgery as scheduled. 2.Insatiety. Unclear if this is a direct effect from the patient's history of subarachnoid hemorrhage and CVA. Continue to encourage her to utilize photographs on her phone to record what she has consumed. Suggested to the patient's father to have more fruit options for snacks for the patient to utilize during the day to have more variety than apples. Continue to encourage encourage ambulation to reduce sedentary lifestyle. Offered referral to dietitian however this was declined. 3. Social isolation. This is compounded by a social restrictions from ramirez virus pandemic. The patient is encouraged to continue to have routine face time with friends and rastafari community members. Continue to encourage weekly virtual rastafari attendance. Suggested that she look at getting back into photography as this was a source of enjoyment for her. Gently encouraged her to break out of her comfort zone for when her neighbor who is close and age returns from [place] that they may have a coffee date outside. Also made the suggestion that the patient since she is able to ambulate more with ease to attend errands with her father and may not always go inside of stores but may sit in the car to have more stimulation that she is desiring that she is not getting at home. Supportive listening provided and encouragement. 4. Advanced care planning. Patient and her father have begun in conversations regarding the future for the patient in relation to her ability to have more independence. She is very clear that she does not wish to remain in her parents home nor does she prefer to remain on [address]. Possible expiration in the future would be a us[facility] environment, assisted living, or living independently in an apartment close by her brothers if she is able to perform many IADLs. This is something that will need to be explored further in the future but is optimistic [place] possible as the patient has made great strides. There appear to be no further palliative care needs at the present time and therefore will discharge from palliative care services. Patient and father/DPOA aware that palliative care is available if sudden change in condition or needs further support and assistance in advanced care planning. Palliative care is available for problem solving as needed. Time Spent: Total time spent 50 minutes with greater than 50% of this spent in counseling and coordination of care with patient and father; examination of patient; problem solving to reduce social isolation safely; supportive listening; e xamination of patient; and anticipatory guidance. Disclaimer: The chart note was formulated using voice recognition technology and unfortunately sound alike errors may occur.
== END 2020-08-06 12:01 | disposition home or self-care (01) ==
LOC: PC 12:00
PROVIDERS: ATTEND Nurse Practitioner Family
DX: Z51.5 Encounter for palliative care (principal); R53.81 Other malaise; R63.8 Other symptoms and signs concerning food and fluid intake; Z60.4 Social exclusion and rejection; Z86.79 Personal history of other diseases of the circulatory system
CPT/HCPCS: 99349

== ENCOUNTER 2021-03-31 08:00 | Outpatient (CLI) | payer OTHER ==
[2021-03-31 18:00] LABS: BASOPHILS % (AUTO) 0.5 %; EOSINOPHILS # (AUTO) 0.2 10^3/uL (0.0-0.7); EOSINOPHILS % (AUTO) 3.1 %; HCT - HEMATOCRIT 46.7 % (37.0-47.0); HGB - HEMOGLOBIN 15.1 g/dL (12.0-16.0); LYMPHOCYTES # (AUTO) 1.9 10^3/uL (1.5-3.5); LYMPHOCYTES % (AUTO) 32.9 %; MEAN CORPUSCULAR HEMOGLOBIN 30.1 pg (27.0-31.0); MEAN CORPUSCULAR HGB CONC 32.3 g/dL (32.0-36.0); MEAN PLATELET VOLUME 9.4 fL (7.9-10.8); MONOCYTES # (AUTO) 0.3 10^3/uL (0.0-1.0); MONOCYTES % (AUTO) 5.3 %; NEUTROPHILS # (AUTO) 3.4 10^3/uL (1.5-6.6); NEUTROPHILS % (AUTO) 57.9 %; PLT - PLATELET COUNT 233 10^3/uL (130-450); RED BLOOD COUNT 5.02 10^6/uL (4.20-5.40); RED CELL DISTRIBUTION WIDTH 12.3 % (12.0-15.0); WHITE BLOOD COUNT 5.8 x10^3/uL (4.8-10.8)
[2021-03-31 18:14] LABS: ALBUMIN 4.7 g/dL (3.2-5.5); ALBUMIN/GLOBULIN RATIO 1.3 (1.0-2.2); ALKALINE PHOSPHATASE 85 IU/L (42-121); ALT ALANINE AMINOTRANSFERASE 29 IU/L (10-60); AST ASPARTATE AMINOTRANSFERASE 24 IU/L (10-42); BILIRUBIN,TOTAL 0.5 mg/dL (0.2-1.0); BUN - BLOOD UREA NITROGEN 15 mg/dL (6-20); CALCIUM 9.5 mg/dL (8.5-10.3); CARBON DIOXIDE - CO2 26 mmol/L (21-32); CHLORIDE 101 mmol/L (101-111); CHOL/HDL RATIO 3.8 (<4.4); CHOLESTEROL 184 mg/dL; CREATININE 0.8 mg/dL (0.4-1.0); GFR - MDRD 74 (>89); GLUCOSE 109 mg/dL (70-100); HDL CHOLESTEROL 49 mg/dL; LDL CHOLESTEROL,CALCULATED 82 mg/dL; LDL/HDL RATIO 1.7 (<4.4); POTASSIUM 4.1 mmol/L (3.5-5.0); SODIUM 138 mmol/L (135-145); TOTAL PROTEIN 8.2 g/dL (6.7-8.2); TRIGLYCERIDES 266 mg/dL; VLDL CHOLESTEROL 53 mg/dL
[2021-03-31 18:27] LABS: THYROID STIMULATING HORMONE 3.02 uIU/mL (0.34-5.60)
== END 2021-03-31 08:01 | disposition home or self-care (01) ==
LOC: LAB.WCP 08:00
PROVIDERS: ATTEND Family Medicine
DX: R63.5 Abnormal weight gain (principal); E78.5 Hyperlipidemia, unspecified; Z11.1 Encounter for screening for respiratory tuberculosis
CPT/HCPCS: 36415; 80053; 80061; 83721; 84443; 85025; 86480